=== PATIENT | female | born 1985 | race African-American/Black ===

== ENCOUNTER 2017-04-11 22:00 | Emergency (ER) | payer MEDICAID ==
[~2017-04-11] VITALS: Ht 160 cm; Wt 55.3 kg
[~2017-04-11 22:00] MED LIST: IBUP-1222 PO
[2017-04-11] MEDS ORDERED: SODIUM CHLORIDE 0.9% 1,000ML IVBOLUS ONE (23:00)
[2017-04-11] MEDS ORDERED: SODIUM CHLORIDE FLUSH 10ML SYR IVF ONE (23:00)
[2017-04-11] MEDS ORDERED: morphine SULFATE 10 MG/ML, 1ML ONE (23:16)
[2017-04-11] MEDS ORDERED: ONDANSETRON 2MG/ML, 2ML ONE (23:17)
[2017-04-11] MEDS: morphine SULFATE 10 MG/ML, 1ML IVPush PRN (23:24)
[2017-04-11 23:27] LABS: HEMATOCRIT 46.1 % (34.6-47.8); HEMOGLOBIN 15.3 g/dL (11.7-16.4)
[2017-04-11] MEDS ORDERED: ONDANSETRON 2MG/ML, 2ML IVPush ONE (23:30)
[2017-04-11 23:39] LABS: ASPARTATE AMINO TRANSFERASE 14 U/L (15-37); BLOOD UREA NITROGEN 11 mg/dL (7-18)
[2017-04-12] MEDS ORDERED: CEFTRIAXONE PMX 1GM/50ML 50 ML IV ONE
[2017-04-12] MEDS ORDERED: OMNIPAQUE 350 MG/ML, 100ML BOTTLE ONE (00:12)
[2017-04-12] MEDS ORDERED: morphine SULFATE 10 MG/ML, 1ML ONE (00:29)
[2017-04-12] MEDS: morphine SULFATE 10 MG/ML, 1ML IVPush PRN (00:32)
[2017-04-12 01:30] VITALS: BP 107/76
== END 2017-04-12 01:48 | disposition home or self-care (01) ==
LOC: ED 23:59
DX: N39.0 Urinary tract infection, site not specified (principal)
CPT/HCPCS: 36415; 74177; 80053; 81001; 84703; 85025; 87086; 96361; 96365; 96375; 96376; 99285; J0696; J2270; J2405; J7030; Q9967

== ENCOUNTER 2017-05-10 19:46 | Emergency (ER) | payer MEDICAID ==
[~2017-05-10] VITALS: Ht 158.8 cm; Wt 51.3 kg
[2017-05-10 19:49] VITALS: BP 114/78
[2017-05-10] MEDS ORDERED: FAMOTIDINE 20 MG TABLET ONE (20:16)
[2017-05-10] MEDS ORDERED: FAMOTIDINE 20 MG TABLET PO ONE (20:30)
== END 2017-05-10 20:51 | disposition home or self-care (01) ==
LOC: ED 20:45
DX: L50.0 Allergic urticaria (principal); F17.210 Nicotine dependence, cigarettes, uncomplicated
CPT/HCPCS: 99284; J7512; Q0177

== ENCOUNTER 2017-08-20 20:38 | Emergency (ER) | payer MEDICAID ==
[~2017-08-20] VITALS: Ht 157.5 cm; Wt 54.9 kg
[2017-08-20 21:44] VITALS: BP 121/79
== END 2017-08-20 21:46 | disposition home or self-care (01) ==
LOC: ED 21:40
DX: T78.1XXA Other adverse food reactions, not elsewhere classified, initial encounter (principal); X58.XXXA Exposure to other specified factors, initial encounter; F17.200 Nicotine dependence, unspecified, uncomplicated
CPT/HCPCS: 99283

== ENCOUNTER 2018-03-07 15:49 | Emergency (ER) | payer MEDICAID ==
[~2018-03-07] VITALS: Ht 157.5 cm; Wt 51.5 kg
[2018-03-07 16:28] LABS: BASOPHILS # (AUTO) 0.03 x10^3/uL (0-0.1); BASOPHILS % (AUTO) 0 % (0-1); EOSINOPHILS # (AUTO) 0.04 x10^3/uL (0-0.4); EOSINOPHILS % (AUTO) 0 % (1-7); LYMPHOCYTES # (AUTO) 1.32 x10^3/uL (1-3.4); LYMPHOCYTES % (AUTO) 12 % (22-44); MD NO; MEAN CORPUSCULAR HEMOGLOBIN 33.6 pg (27.0-34.8); MEAN CORPUSCULAR HGB CONC 33.5 g/dL (32.4-35.8); MEAN CORPUSCULAR VOLUME 100.2 fL (80-100); MEAN PLATELET VOLUME 8.5 fL (7.4-10.4); MONOCYTES # (AUTO) 0.49 x10^3/uL (0.2-0.8); MONOCYTES % (AUTO) 4 % (2-9); NEUTROPHILS # (AUTO) 9.28 x10^3/uL (1.8-6.8); NEUTROPHILS % (AUTO) 83 % (42-75); PLATELET COUNT 242 x10^3/uL (130-400); RED BLOOD COUNT 5.09 x10^6/uL (3.82-5.3); RED CELL DISTRIBUTION WIDTH 12.6 % (9.6-15.2)
[2018-03-07 16:37] LABS: INTERNATIONAL NORMALIZED RATIO 1.1 (0.93-1.1); PROTHROMBIN TIME 11.4 Seconds (9.6-11.5)
[2018-03-07 16:45] LABS: ALANINE AMINOTRANSFERASE 17 U/L (12-78); ALBUMIN 3.6 g/dL (3.4-5.0); ANION GAP 6 mmol/L (5-15); CALCIUM 8.3 mg/dL (8.5-10.1); CHLORIDE 106 mmol/L (98-107); CREATININE 0.97 mg/dL (0.55-1.02)
[2018-03-07 16:49] LABS: ALKALINE PHOSPHATASE 46 U/L (45-117); BILIRUBIN,TOTAL 0.5 mg/dL (0.2-1.0); TOTAL PROTEIN 6.8 g/dL (6.4-8.2); TROPONIN I < 0.015 ng/mL (0.000-0.045)
[2018-03-07 17:29] VITALS: BP 125/70
== END 2018-03-07 17:39 | disposition home or self-care (01) ==
LOC: ED 17:05
DX: R55 Syncope and collapse (principal); F17.200 Nicotine dependence, unspecified, uncomplicated
CPT/HCPCS: 36415; 71045; 80053; 83605; 83880; 84484; 85025; 85610; 93005; 99285

== ENCOUNTER 2018-03-16 11:50 | Emergency (ER) | payer MEDICAID ==
[~2018-03-16] VITALS: Ht 157.5 cm; Wt 50.7 kg
[2018-03-16] MEDS ORDERED: LIDOCAINE-MPF 2%, 2ML ONE (13:00)
[2018-03-16] MEDS ORDERED: AZITHROMYCIN 500 MG TABLET ONE (13:00)
[2018-03-16] MEDS ORDERED: AZITHROMYCIN 500 MG TABLET PO ONE (13:00)
[2018-03-16] MEDS ORDERED: CEFTRIAXONE 250 MG ONE (13:00)
[2018-03-16] MEDS ORDERED: CEFTRIAXONE 250 MG IM ONE (13:00)
[2018-03-16 13:32] LABS: CLUE CELLS PRESENT (NONE SEEN); WET PREP WBCS FEW (FEW)
[2018-03-16 14:03] VITALS: BP 121/77
== END 2018-03-16 14:05 | disposition home or self-care (01) ==
LOC: ED 13:05
DX: N76.0 Acute vaginitis (principal); B96.89 Other specified bacterial agents as the cause of diseases classified elsewhere
CPT/HCPCS: 87210; 87491; 87591; 87808; 96372; 99284; J0696

== ENCOUNTER 2018-05-12 01:50 | Emergency (ER) | payer MEDICAID ==
[2018-05-12] MEDS ORDERED: ONDANSETRON 2MG/ML, 2ML ONE (02:22)
[2018-05-12] MEDS ORDERED: MORPHINE SULFATE 4 MG/ML, 1ML ONE (02:22)
[2018-05-12 02:30] LABS: BASOPHILS # (AUTO) 0.02 x10^3/uL (0-0.1); BASOPHILS % (AUTO) 0 % (0-1); EOSINOPHILS # (AUTO) 0.16 x10^3/uL (0-0.4); EOSINOPHILS % (AUTO) 2 % (1-7); LYMPHOCYTES # (AUTO) 2.14 x10^3/uL (1-3.4); LYMPHOCYTES % (AUTO) 26 % (22-44); MD NO; MEAN CORPUSCULAR HEMOGLOBIN 33.3 pg (27.0-34.8); MEAN CORPUSCULAR HGB CONC 33.6 g/dL (32.4-35.8); MEAN CORPUSCULAR VOLUME 99.1 fL (80-100); MEAN PLATELET VOLUME 8.7 fL (7.4-10.4); MONOCYTES # (AUTO) 0.71 x10^3/uL (0.2-0.8); MONOCYTES % (AUTO) 9 % (2-9); NEUTROPHILS % (AUTO) 64 % (42-75); PLATELET COUNT 280 x10^3/uL (130-400); RED BLOOD COUNT 4.36 x10^6/uL (3.82-5.3); RED CELL DISTRIBUTION WIDTH 12.9 % (9.6-15.2)
[2018-05-12] MEDS ORDERED: MORPHINE SULFATE 4 MG/ML, 1ML IVPush ONE (02:30)
[2018-05-12] MEDS ORDERED: ONDANSETRON 2MG/ML, 2ML IVPush ONE (02:30)
[2018-05-12] MEDS ORDERED: ONDANSETRON ODT 4 MG PO ONE (02:30)
[2018-05-12 02:40] LABS: ALANINE AMINOTRANSFERASE 21 U/L (12-78); ANION GAP 6 mmol/L (5-15); CALCIUM 9.1 mg/dL (8.5-10.1); CHLORIDE 107 mmol/L (98-107); CREATININE 0.94 mg/dL (0.55-1.02)
[2018-05-12 02:42] LABS: ALKALINE PHOSPHATASE 46 U/L (45-117); BILIRUBIN,TOTAL 0.4 mg/dL (0.2-1.0); TOTAL PROTEIN 7.3 g/dL (6.4-8.2)
[2018-05-12] MEDS ORDERED: OMNIPAQUE 350 MG/ML, 100ML BOTTLE ONE (03:20)
[2018-05-12 03:39] LABS: CULTURE INDICATED? NO; MICROSCOPIC AUTO
[2018-05-12] MEDS ORDERED: IBUPROFEN 600 MG TABLET ONE (05:15)
[2018-05-12 05:21] VITALS: BP 108/65
[2018-05-12] MEDS ORDERED: IBUPROFEN 200 MG TABLET PO ONE (05:30)
== END 2018-05-12 05:25 | disposition home or self-care (01) ==
LOC: ED 01:59
DX: R10.30 Lower abdominal pain, unspecified (principal); R11.2 Nausea with vomiting, unspecified; R10.2 Pelvic and perineal pain
CPT/HCPCS: 36415; 74177; 76830; 80053; 81001; 83690; 84703; 85025; 96374; 96375; 99284; J2405; Q9967

== ENCOUNTER 2019-01-26 22:52 | Emergency (ER) | payer MEDICAID ==
[~2019-01-26] VITALS: Ht 157.5 cm; Wt 54.4 kg
[2019-01-26 23:02] VITALS: BP 131/84
== END 2019-01-27 00:40 | disposition home or self-care (01) ==
LOC: ED 01-27 00:09
DX: H66.002 Acute suppurative otitis media without spontaneous rupture of ear drum, left ear (principal); H60.502 Unspecified acute noninfective otitis externa, left ear
CPT/HCPCS: 99283

== ENCOUNTER 2019-12-13 23:52 | Emergency (ER) | payer MEDICAID ==
[~2019-12-13] VITALS: Ht 160 cm; Wt 56.5 kg
[2019-12-14 01:28] LABS: BASOPHILS # (AUTO) 0.03 x10^3/uL (0-0.1); BASOPHILS % (AUTO) 0 % (0-1); EOSINOPHILS # (AUTO) 0.07 x10^3/uL (0-0.4); EOSINOPHILS % (AUTO) 1 % (1-7); LYMPHOCYTES # (AUTO) 2.06 x10^3/uL (1-3.4); LYMPHOCYTES % (AUTO) 18 % (22-44); MD NO; MEAN CORPUSCULAR HEMOGLOBIN 33.6 pg (27.0-34.8); MEAN CORPUSCULAR HGB CONC 33.6 g/dL (32.4-35.8); MEAN PLATELET VOLUME 8.1 fL (7.4-10.4); MONOCYTES # (AUTO) 0.31 x10^3/uL (0.2-0.8); MONOCYTES % (AUTO) 3 % (2-9); NEUTROPHILS # (AUTO) 9.05 x10^3/uL (1.8-6.8); NEUTROPHILS % (AUTO) 79 % (42-75); PLATELET COUNT 312 x10^3/uL (130-400); RED BLOOD COUNT 4.25 x10^6/uL (3.82-5.3); RED CELL DISTRIBUTION WIDTH 12.6 % (9.6-15.2)
[2019-12-14 01:40] LABS: ALANINE AMINOTRANSFERASE 21 U/L (12-78); ALBUMIN 3.9 g/dL (3.4-5.0); ANION GAP 7 mmol/L (5-15); CALCIUM 9.1 mg/dL (8.5-10.1); CHLORIDE 104 mmol/L (98-107); CREATININE 0.67 mg/dL (0.55-1.02)
[2019-12-14 01:45] LABS: ALKALINE PHOSPHATASE 52 U/L (45-117); BILIRUBIN,TOTAL 0.7 mg/dL (0.2-1.0); TOTAL PROTEIN 7.5 g/dL (6.4-8.2)
[2019-12-14] MEDS ORDERED: ONDANSETRON ODT 4 MG ONE (02:42)
--- NOTE | 2019-12-14 02:45 | NUR ---
patient asking medication for nausea. patient given Zofran ODT. states if she can have a precription for nausea she will go home now.
--- NOTE | 2019-12-14 02:51 | NUR ---
ERP talking to patient in triage 2.
[2019-12-14] MEDS ORDERED: ONDANSETRON ODT 4 MG PO ONE (03:00)
--- NOTE | 2019-12-14 03:05 | NUR ---
patient discharged with prescriptions and instruction. verbalized understanding.
[2019-12-14 03:06] VITALS: BP 105/72
== END 2019-12-14 03:08 | disposition home or self-care (01) ==
LOC: ED 12-14 02:36
DX: O21.1 Hyperemesis gravidarum with metabolic disturbance (principal); R10.2 Pelvic and perineal pain; E86.0 Dehydration; F17.200 Nicotine dependence, unspecified, uncomplicated; Z3A.01 Less than 8 weeks gestation of pregnancy
CPT/HCPCS: 36415; 76801; 80053; 84702; 85025; 99284; Q0162

== ENCOUNTER 2020-03-17 11:22 | Emergency (ER) | payer MEDICAID ==
[~2020-03-17] VITALS: Ht 157.5 cm; Wt 57.5 kg
[2020-03-17 11:28] VITALS: BP 135/89
[2020-03-17] MEDS ORDERED: KETOROLAC 30 MG/1 ML ONE (11:56)
[2020-03-17] MEDS ORDERED: KETOROLAC 30 MG/1 ML IM ONE (12:00)
== END 2020-03-17 12:47 ==
LOC: ED 12:41
DX: S63.521A Sprain of radiocarpal joint of right wrist, initial encounter (principal); S83.92XA Sprain of unspecified site of left knee, initial encounter; W19.XXXA Unspecified fall, initial encounter; Y93.89 Activity, other specified; Y92.488 Other paved roadways as the place of occurrence of the external cause; Y99.8 Other external cause status
CPT/HCPCS: 29125; 29505; 73110; 73564; 96372; 99284; J1885

== ENCOUNTER 2020-11-26 09:39 | Emergency (ER) | payer MEDICAID ==
[~2020-11-26] VITALS: Ht 157.5 cm; Wt 59.2 kg
[2020-11-26 10:17] VITALS: BP 122/80
--- NOTE | 2020-11-26 10:17 | NUR ---
PT PRESENTS TO ED WITH C/O L EAR PAIN AND SORE THROAT X1 WEEK. STATES IT HURTS TO SWALLOW. PT A&O, RESPS EVEN AND UNLABORED, VSS, NADN. YUNIOR CORONADO AT BEDSIDE FOR EVAL.
[2020-11-26] MEDS ORDERED: DEXAMETHASONE 4 MG TABLET ONE (11:00)
[2020-11-26] MEDS ORDERED: DEXAMETHASONE 4 MG TABLET PO ONE (12:00)
== END 2020-11-26 11:11 | disposition home or self-care (01) ==
LOC: ED 10:42
DX: B34.9 Viral infection, unspecified (principal); Z20.822 Contact with and (suspected) exposure to COVID-19; J02.9 Acute pharyngitis, unspecified; H92.02 Otalgia, left ear; F17.200 Nicotine dependence, unspecified, uncomplicated
CPT/HCPCS: 87081; 87880; 99283; U0003; U0005

== ENCOUNTER 2021-02-19 19:48 | Emergency (ER) | payer MEDICAID ==
[~2021-02-19] VITALS: Ht 157.5 cm; Wt 57.1 kg
[2021-02-19 19:53] VITALS: BP 122/77
[2021-02-19 21:45] LABS: MICROSCOPIC INDICATED
--- NOTE | 2021-02-20 00:25 | NUR ---
TASK RN: NOT IN LOBBY WHEN CALLED FOR ROOM
--- NOTE | 2021-02-20 02:20 | NUR ---
Patient NIL after multiple attempts to room patient.
== END 2021-02-20 02:44 | disposition left against medical advice (07) ==
LOC: ED 20:00
DX: R07.89 Other chest pain (principal); R10.9 Unspecified abdominal pain
CPT/HCPCS: 71045; 81001; 87077; 87086; 99284

== ENCOUNTER 2021-03-17 11:41 | Emergency (ER) | payer MEDICAID ==
[~2021-03-17] VITALS: Ht 158.8 cm; Wt 57.8 kg
[2021-03-17 11:48] VITALS: BP 123/71
== END 2021-03-17 13:57 | disposition home or self-care (01) ==
LOC: ED 12:07
DX: S20.212A Contusion of left front wall of thorax, initial encounter (principal); J01.00 Acute maxillary sinusitis, unspecified; F17.210 Nicotine dependence, cigarettes, uncomplicated; Y04.8XXA Assault by other bodily force, initial encounter; Y93.89 Activity, other specified; Y92.89 Other specified places as the place of occurrence of the external cause; Y99.8 Other external cause status
CPT/HCPCS: 70450; 71045; 96361; 96374; 96375; 99284; 99406; J0780; J1200; J7030